=== PATIENT | female | born 1990 | race Caucasian/White ===

== ENCOUNTER 2021-05-20 17:50 | Outpatient (CLI) | payer OTHER ==
[2021-05-20 19:03] VITALS: BP 134/83; PULSE 89; RESP 15; TEMP 97.9
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
== END 2021-05-20 18:35 | disposition home or self-care (01) ==
LOC: FBPOP 17:50
PROVIDERS: ATTEND Obstetrics & Gynecology
DX: O9A.212 Injury, poisoning and certain other consequences of external causes complicating pregnancy, second trimester (principal); O36.8120 Decreased fetal movements, second trimester, not applicable or unspecified; Z3A.25 25 weeks gestation of pregnancy; Z88.1 Allergy status to other antibiotic agents; W19.XXXA Unspecified fall, initial encounter
CPT/HCPCS: 99213

== ENCOUNTER 2021-07-23 16:55 | Outpatient (CLI) | payer OTHER ==
[2021-07-23 17:58] LABS: Basophils % (A) 0 %; Eosinophils # (A) 0.1 k/uL (0-0.7); Eosinophils % (A) 1 %; HCT 32.1 % (34.0-46.0); HGB 10.2 gm/dL (11.4-16.0); Hypochromasia Slight; Lymphocytes % (A) 20 %; MCH 26.6 pg (25.0-35.0); MCHC 31.9 g/dL (31.0-37.0); MCV 83.6 fL (80.0-100.0); Mean Platelet Volume 7.6; Monocytes # (A) 0.4 k/uL (0-1.0); Monocytes % (A) 4 %; Neutrophils # (A) 7.1 k/uL (1.3-7.7); Neutrophils % (A) 72 %; Platelet Count 310 k/uL (150-450); RBC 3.84 m/uL (3.80-5.40); RDW 15.8 % (11.5-15.5); WBC 9.9 k/uL (3.8-10.6)
[2021-07-23 18:17] LABS: ALT 15 U/L (4-34); AST 20 U/L (14-36); African American GFR (CKD) >90 (>60 ml/min/1.73 sqM); Blood Urea Nitrogen 5 mg/dL (7-17); LDH 402 U/L (313-618); Non-African American GFR(CKD) >90 (>60 ml/min/1.73 sqM); Uric Acid 3.6 mg/dL (3.7-7.4)
[2021-07-23 18:41] LABS: Appearance,Urine Cloudy (Clear); Bacteria,Urine Moderate /hpf; Bilirubin,Urine Negative (Negative); Blood,Urine Negative (Negative); Color,Urine Light Yellow; Glucose,Urine (UA) Negative (Negative); Ketones,Urine Negative (Negative); Leukocyte Esterase,Urine Negative (Negative); Mucus,Urine Rare /hpf; Nitrite,Urine Negative (Negative); Protein,Urine Negative (Negative); Specific Gravity,Urine 1.007 (1.001-1.035); Squamous Epithelial Cell,Urine 9 /hpf (0-4); Transitional Epi Cells,Urine <1 /hpf (0-1); Urobilinogen,Urine <2.0 mg/dL (<2.0); WBC,Urine 3 /hpf (0-5)
[2021-07-23 18:53] LABS: Creatinine,Urine Random 44.2 mg/dL; Protein/Creatinine Ratio,Urine 0.339
[2021-07-23 19:24] VITALS: BP 145/65; PULSE 102; RESP 16; TEMP 97.2
--- NOTE | 2021-08-01 08:19 | P.MSEPDOC ---
Presenting Problems - Arrival Data Date of Arrival on Unit: 07/23/21 Time of Arrival on Unit: 16:55 Mode of Transport: Ambulatory - Complaint OB-Reason for Admission/Chief Complaint: PIH Medical History - Information : 2 Para: 1 Term: 1 : 0 Abortions: Spontaneous or Elective: 0 Number of Living Children: 1 - Gestational Age Gestational Age by ELISEO (wks/days): 34 Weeks and 3 Days - History Complications: Prior Review of Systems - Review of Systems Constitutional: No problems Breast: No problems ENT: No problems Cardiovascular: No problems Respiratory: No problems Gastrointestinal: No problems Genitourinary: No problems Musculoskeletal: No problems Neurological: No problems Skin: No problems Vital Signs - Temperature Temperature: 97.2 F Temperature Source: Temporal Artery Scan - Pulse Brachial Pulse Rate: 102 Pulse Assessment Method: Automatic Cuff - Respirations Respiratory Rate: 16 Oxygen Delivery Method: Room Air O2 Sat by Pulse Oximetry: 97 - Blood Pressure Right Arm Sitting Blood Pressure: 145/65 Blood Pressure Mean: 91 Blood Pressure Source: Automatic Cuff Medical Screen Scoring - Cervical Exam Membranes: Intact - Assessment - Baby A Baseline FHR: 145 Heart Rate - NICHD Category: Category I (Normal) Physician Notification - Physician Notified Physician Notified Date: 07/23/21 Physician Notified Time: 19:23 Physician: Loni Gutierrez New Order Received: Yes - Notification Comment Comment: reported labs, bp's and amniure neg. Orders received to have pt start Labetolol tomorrow morning that will sent to her pharmacy. Orders received to have pt f/u with Dr Ellis on Wednesday and continue to monitor bp's at home. Maternal Triage Index - Maternal Triage Index Presenting for scheduled procedure w/no complaint: No - Stat/Priority 1 Stat Priority 1: No - Urgent/Priority 2 Urgent Priority 2: Yes Provider Notified: Loni Gutierrez Provider Notified Time: 17:20 Criteria Met for Priority 2: elevated bp's Disposition - Disposition OB Disposition: Triage, Discharge to home, Written follow up instructions reviewed Discharge Date: 07/23/21 Discharge Time: 19:35 I agree with the RN Medical Screening Exam: Yes Case reviewed; plan agreed upon as documented in EMR&OBIX.: Yes Diagnosis: gestational hypertension
== END 2021-07-23 19:35 | disposition home or self-care (01) ==
LOC: FBPOP 16:55
PROVIDERS: ATTEND Obstetrics & Gynecology
DX: O13.3 Gestational [pregnancy-induced] hypertension without significant proteinuria, third trimester (principal); Z3A.34 34 weeks gestation of pregnancy
CPT/HCPCS: 59025; 82570; 84156; 82565; 83615; 84450; 84460; 84520; 84550; 85025; 81001; G0463; 99215

== ENCOUNTER 2021-08-15 19:40 | Inpatient (IN) | payer OTHER ==
[2021-08-15 21:10] LABS: Appearance,Urine Clear (Clear); Basophils % (A) 0 %; Bilirubin,Urine Negative (Negative); Blood,Urine Negative (Negative); Color,Urine Yellow; Eosinophils # (A) 0.1 k/uL (0-0.7); Eosinophils % (A) 1 %; Glucose,Urine (UA) Negative (Negative); HCT 30.9 % (34.0-46.0); Hypochromasia Moderate; Ketones,Urine Negative (Negative); Leukocyte Esterase,Urine Negative (Negative); Lymphocytes # (A) 2.3 k/uL (1.0-4.8); Lymphocytes % (A) 20 %; MCH 26.3 pg (25.0-35.0); MCHC 32.3 g/dL (31.0-37.0); MCV 81.4 fL (80.0-100.0); Mean Platelet Volume 7.8; Monocytes # (A) 0.5 k/uL (0-1.0); Monocytes % (A) 5 %; Neutrophils # (A) 8.5 k/uL (1.3-7.7); Neutrophils % (A) 73 %; Nitrite,Urine Negative (Negative); Platelet Count 379 k/uL (150-450); Poikilocytosis Slight; Protein,Urine Trace (Negative); RBC 3.79 m/uL (3.80-5.40); RDW 15.4 % (11.5-15.5); Specific Gravity,Urine 1.013 (1.001-1.035); Urobilinogen,Urine <2.0 mg/dL (<2.0); WBC 11.6 k/uL (3.8-10.6)
[2021-08-15 21:15] LABS: Creatinine,Urine Random 101.5 mg/dL; Creatinine,Urine Random 101.7 mg/dL; Protein/Creatinine Ratio,Urine 0.167
[2021-08-15 21:18] LABS: ALT 19 U/L (4-34); AST 23 U/L (14-36); African American GFR (CKD) >90 (>60 ml/min/1.73 sqM); Blood Urea Nitrogen 6 mg/dL (7-17); LDH 391 U/L (313-618); Non-African American GFR(CKD) >90 (>60 ml/min/1.73 sqM); Uric Acid 4.5 mg/dL (3.7-7.4)
[2021-08-15] MEDS ORDERED: LABETALOL 200 MG TAB PO STA (22:26)
[2021-08-15] MEDS: ACETAMINOPHEN TAB 500 MG TAB PO PRN (22:43)
[2021-08-16] MEDS ORDERED: ceFAZolin 3 GM in SODIUM CHLORIDE 0.9% 100 ML IVPB ONE (05:30)
[2021-08-16] MEDS ORDERED: CITRIC ACID-SODIUM CITRATE 15 ML CUP PO ONE (06:00)
[2021-08-16] MEDS ORDERED: LACTATED RINGERS 1,000 ML IV ONE (06:00)
[2021-08-16] MEDS ORDERED: KETOROLAC 15 MG/ML 1 ML VIAL ONE (06:54)
[2021-08-16] MEDS ORDERED: PHENYLEPHRINE-0.9% NACL SYG 1,000 MCG/10 ML SYRINGE ONE (06:54)
[2021-08-16] MEDS ORDERED: MORPHINE SULFATE (PF) 0.3 MG/0.3 ML SYR ONE (06:54)
--- NOTE | 2021-08-16 06:59 | P.HPOB ---
History of Present Illness H&P Date: 08/16/21 Chief Complaint: Data blood pressures at home, headache, right upper quadrant pain, 37-6/7 w This is a 32-year-old female 2 para 1001 EDC 08/31/2021 at 37-6/7 weeks' gestation. Patient has been on labetalol 100 mg twice daily. Yesterday she called with elevated blood pressures at home, 140s to 150s over 70s to 80s. She was admitted, labs were essentially normal, however blood pressures were noted to be elevated. She is scheduled for repeat section and tubal ligation in 1 week. Decision was made to proceed with surgery today. Fetus is been active throughout the . Past medical history is significant for PCO OS. Past surgical history section 2014, cholecystectomy,. Current medications vitamins, labetalol 100 mg twice daily, baby aspirin daily. ALLERGIES amoxicillin to which reports a rash as a child. Family history is significant for hypertension, diabetes, cervical cancer, asthma, cleft palate. Social history patient is a former tobacco smoker, she is , she denies alcohol or drug use. history blood type is A+, rubella status immune. VDRL testing, urine culture, group B strep cultures, hepatitis B surface antigen, HIV testing, gonorrhea Chlamydia cultures all negative. One-hour Glucola 103. On exam patient is 5 foot 9 inches, 314 pounds blood pressure 146/71 this morning. Patient has multiple tattoos across the body. Chest is clear in all christianson. Cervix is long thick and closed. heart rate is consistent with reactive NST. She has 3+ reflexes. 3+ lower extremity edema. Facial edema noted as well. Impression: 37-6/7 weeks intrauterine , -induced hypertension with symptoms of preeclampsia, labs within normal limits. Maternal obesity. Undesired fertility. Previous section, wishing repeat , declined. Plan: For repeat low transverse section. 3 g of Ancef. Anesthesia aware. All risks and benefits reviewed. Review of Systems Constitutional: Reports as per HPI Past Medical History Past Medical History: Asthma Additional Past Medical History / Comment(s): polycystic ovarian syndrome History of Any Multi-Drug Resistant Organisms: None Reported Past Surgical History: Section, Cholecystectomy Additional Past Surgical History / Comment(s): kidney stents places and removed Past Anesthesia/Blood Transfusion Reactions: No Reported Reaction Past Psychological History: No Psychological Hx Reported Smoking Status: Never smoker Past Alcohol Use History: None Reported Past Drug Use History: None Reported Medications and Allergies Home Medications Medication Instructions Recorded Confirmed Type Aspirin [[place] Aspirin EC] 81 mg PO DAILY 07/23/21 08/15/21 History Omeprazole [PriLOSEC] 40 mg PO DAILY 07/23/21 08/15/21 History Pediatric Multivitamin No.144 2 tab PO DAILY 07/23/21 08/15/21 History [Children's Chewable Vitamin] Labetalol [Trandate] 100 mg PO BID 08/15/21 08/15/21 History Allergies Allergy/AdvReac Type Severity Reaction Status Date / Time amoxicillin Allergy Rash/Hives Verified 08/15/21 20:07 Exam Vital Signs Temp Pulse Resp BP Pulse Ox 08/15/21 22:20 98.1 F 90 16 142/75 97 08/15/21 20:29 97.7 F 91 16 138/65 98 Intake and Output 08/15/21 08/15/21 08/16/21 14:59 22:59 06:59 Other: # Voids 2 Weight 142.428 kg See dictation under HPI please Results Result Diagrams: 08/15/21 21:00 08/15/21 21:00 Abnormal Lab Results - Last 24 Hours (Table) 08/15/21 08/15/21 08/15/21 Range/Units 21:00 21:00 21:00 WBC 11.6 H (3.8-10.6) k/uL RBC 3.79 L (3.80-5.40) m/uL Hgb 10.0 L (11.4-16.0) gm/dL Hct 30.9 L (34.0-46.0) % Neutrophils # 8.5 H (1.3-7.7) k/uL BUN (7-17) mg/dL Urine Protein Trace H (Negative) U Random Total Protein 18 H (<12) mg/dL 08/15/21 Range/Units 21:00 WBC (3.8-10.6) k/uL RBC (3.80-5.40) m/uL Hgb (11.4-16.0) gm/dL Hct (34.0-46.0) % Neutrophils # (1.3-7.7) k/uL BUN 6 L (7-17) mg/dL Urine Protein (Negative) U Random Total Protein (<12) mg/dL Assessment and Plan Assessment: 37-6/7 weeks intrauterine , -induced hypertension with signs and symptoms of preeclampsia, maternal obesity, undesired fertility, previous section declining Plan: For repeat low transverse section this morning. Anesthesia aware. Antibiotics given. All questions answered. Tubal ligation per patient request. Time with Patient: Less than 30
[2021-08-16] MEDS ORDERED: ONDANSETRON 4 MG/2 ML VIAL IVP PRN (08:11)
[2021-08-16] MEDS ORDERED: METOCLOPRAMIDE 5 MG/ML 2 ML VIAL IVP PRN (08:11)
[2021-08-16] MEDS ORDERED: ZOLPIDEM 5 MG TAB PO PRN (08:11)
[2021-08-16] MEDS ORDERED: NALOXONE 0.4 MG/ML 1 ML VIAL IV PRN (08:11)
[2021-08-16] MEDS ORDERED: SIMETHICONE 80 MG CHEWABLE PO PRN (08:11)
[2021-08-16] MEDS ORDERED: diphenhydrAMINE 50 MG/ML 1 ML VIAL IVP PRN ×2 (08:11)
[2021-08-16] MEDS ORDERED: diphenhydrAMINE 25 MG CAP PO PRN (08:11)
[2021-08-16] MEDS ORDERED: diphenhydrAMINE 50 MG CAP PO PRN (08:11)
--- NOTE | 2021-08-16 08:11 | P.OP ---
Date of Procedure: 08/16/21 Preoperative Diagnosis: 37-6/7 weeks intrauterine , -induced hypertension with signs and symptoms of preeclampsia, maternal obesity, undesired fertility, previous section declining Postoperative Diagnosis: Same, liveborn female . Normal-appearing tubes and ovaries bilaterally Procedure(s) Performed: Repeat low transverse section and tubal ligation Anesthesia: spinal Surgeon: Shantell Ellis Government Affairs Director #1: Kandace Denson Estimated Blood Loss (ml): 307 IV fluids (ml): 800 Urine output (ml): 300 Pathology: other (Placenta) Condition: stable Disposition: PACU Operative Findings: Liveborn female infant, scores 9 and 9 at one and 5 minutes respectively. 6 lbs. 9 oz., 2980 g. Description of Procedure: Patient is brought to the [facility] and suite where a spinal analgesia with Duramorph is administered without difficulty. She's placed in the dorsal supine position with left lateral uterine displacement. 3 g of Ancef are given. The appropriate timeout is performed to assure proper patient and procedural identification. Terrell catheter to direct drainage. The abdomen is prepped and draped in the usual sterile fashion. The analgesia is checked and noted to be adequate. A repeat low transverse skin incision is made after elevating the anterior abdominal wall with Velcro straps. The incision is taken down through the subcutaneous tissue which is approximately 10 cm deep. The fascia is isolated, scored, extended bilaterally with curved Wilkes scissors. Peritoneum is next identified and incised, there is no bowel or bladder involvement. The large disposable ring retractor is placed for excellent visualization. Bladder is well from the operative field, low and behind the retractor. A low transverse uterine incision is made. Artificial amniorrhexis reveals abundant clear fluid. 's head is delivered in the occiput anterior position. There is no nuchal cord. Patient is officially delivered of a liveborn female at 0718 hours. Umbilical cord is doubly clamped and ligated, she is handed to waiting nurses for evaluation where scores of 9 and 9 at one and 5 minutes respectively are given. The placenta is delivered manually, it is inspected and noted to be intact with trivascular cord. It is sent to pathology for evaluation for -induced hypertension with signs and symptoms of preeclampsia. Uterus is externalized and massaged. It is wiped clean with a sterile sponge to avoid any retained products of conception. The uterus is closed in a full thickness single layer stitch of 0 Vicryl with excellent reapproximation. Bilateral tubes and ovaries appear normal to inspection. The abdomen was suctioned with suction on guard posterior to the uterus. Filshie clips are then placed in the isthmic portion of bilateral tubes, with care to traverse the entire diameter of the tubes into the mesal salpinx. Fimbriated ends are identified. The uterus is then gently placed back into the abdominal cavity. The ring retractor is removed. Bilateral gutters are inspected and cleaned. Peritoneum was allowed to close by secondary intention. Fascia is closed in a running stitch of 0 Vicryl with over ligation in the midline. Subcutaneous tissue is deep, inspected thoroughly, clean and dry. It is reapproximated with 3-0 Vicryl in a running stitch. 4-0 undyed Monocryl is used for final skin closure. Steri-Strips and Mastisol are applied to the wound. The wound is dressed. The uterus is massaged for a small amount of blood. Terrell is noted to be draining clear urine. All sponge needle and enhancement counts are correct. Patient is brought back to recovery room in good condition with a blood pressure 138/67, pulse 88. weighs 6 lbs. 9 oz. or 2980 g.
[2021-08-16] MEDS: LACTATED RINGERS 1,000 ML IV SCH ×2 (08:25→12:50)
[2021-08-16] MEDS: KETOROLAC 15 MG/ML 1 ML VIAL IVP SCH ×2 (15:39→21:07)
[2021-08-16] MEDS: IBUPROFEN 600 MG TAB PO SCH ×2 (15:40→21:08)
[2021-08-16] MEDS: SENNOSIDES-DOCUSATE SODIUM 1 EACH TAB PO SCH (19:48)
[2021-08-17] MEDS: KETOROLAC 15 MG/ML 1 ML VIAL IVP SCH (03:34)
[2021-08-17] MEDS: LACTATED RINGERS 1,000 ML IV SCH (03:35)
[2021-08-17] MEDS: IBUPROFEN 600 MG TAB PO SCH ×4 (03:35→22:04)
--- NOTE | 2021-08-17 07:26 | P.PN ---
Progress Note - Text Progress Note Date: 08/17/21 Patient doing well. Ambulating w/o complaints of weakness or paresthesias. Denies headache or pruritis. Pain controlled. Back spinal site clean and dry. POD#1 s/p duramorph spinal for - continue current treatment plan
[2021-08-17 07:27] LABS: Basophils % (A) 0 %; Eosinophils # (A) 0.1 k/uL (0-0.7); Eosinophils % (A) 1 %; HCT 28.9 % (34.0-46.0); HGB 9.1 gm/dL (11.4-16.0); Hypochromasia Moderate; Lymphocytes # (A) 1.4 k/uL (1.0-4.8); Lymphocytes % (A) 10 %; MCH 25.7 pg (25.0-35.0); MCHC 31.3 g/dL (31.0-37.0); MCV 82.1 fL (80.0-100.0); Mean Platelet Volume 7.6; Monocytes # (A) 0.5 k/uL (0-1.0); Monocytes % (A) 4 %; Neutrophils # (A) 11.7 k/uL (1.3-7.7); Neutrophils % (A) 85 %; Platelet Count 344 k/uL (150-450); Poikilocytosis Slight; RBC 3.52 m/uL (3.80-5.40); RDW 15.6 % (11.5-15.5); WBC 13.8 k/uL (3.8-10.6)
--- NOTE | 2021-08-17 07:49 | P.PN ---
Subjective Progress Note Date: 08/17/21 Principal diagnosis: Doing well postoperative day #1 No headache, visual changes or right upper quadrant pain, resolved. No pain. Positive flatus. No complaints Objective - Vital Signs Vital signs: Vital Signs Temp 98.9 F 08/17/21 03:53 Pulse 99 08/17/21 03:53 Resp 16 08/17/21 03:53 BP 129/74 08/17/21 03:53 Pulse Ox 96 08/17/21 03:53 FiO2 Intake & Output 08/16/21 08/17/21 08/17/21 18:59 06:59 18:59 Output Total 1027 300 Balance -1027 -300 Output: Urine 350 300 Uretheral (Terrell) 100 Output, Quantitative 677 Blood Loss Other: # Voids 1 # Emeses 1 - Constitutional General appearance: Present: cooperative, morbidly obese - EENT Eyes: Present: PERRLA ENT: Present: hearing grossly normal - Neck Thyroid: bilateral: normal size - Respiratory Respiratory: bilateral: CTA - Cardiovascular Rhythm: regular - Gastrointestinal Gastrointestinal Comment(s): Incision clean and dry, intact, Steri-Strips applied. Fundus firm, midline, symmetric, 18 week size. - Integumentary Integumentary: Present: normal - Neurologic Neurologic: Present: CNII-XII intact - Musculoskeletal Musculoskeletal: Present: gait normal, strength equal bilaterally - Labs CBC & Chem 7: 08/17/21 06:56 08/15/21 21:00 Labs: Abnormal Lab Results - Last 24 Hours (Table) 08/17/21 Range/Units 06:56 WBC 13.8 H (3.8-10.6) k/uL RBC 3.52 L (3.80-5.40) m/uL Hgb 9.1 L (11.4-16.0) gm/dL Hct 28.9 L (34.0-46.0) % RDW 15.6 H (11.5-15.5) % Neutrophils # 11.7 H (1.3-7.7) k/uL Assessment and Plan Assessment: Doing well first postoperative day. Blood pressures have normalized. No complaints Plan: Ferrous sulfate twice daily. Continue postoperative care. Likely discharge home tomorrow. Time with Patient: Less than 30
[2021-08-17] MEDS: SENNOSIDES-DOCUSATE SODIUM 1 EACH TAB PO SCH ×2 (08:01→22:05)
[2021-08-17] MEDS: ACETAMINOPHEN TAB 500 MG TAB PO PRN ×2 (14:18→19:22)
[2021-08-17] MEDS: FERROUS SULFATE 325 MG TAB PO SCH (17:55)
[2021-08-18] MEDS: ACETAMINOPHEN TAB 500 MG TAB PO PRN (02:44)
[2021-08-18] MEDS: IBUPROFEN 600 MG TAB PO SCH (06:18)
[2021-08-18 08:02] VITALS: BP 138/83; PULSE 91; RESP 18; TEMP 98
--- NOTE | 2021-08-18 08:02 | P.DS ---
Providers Date of admission: 08/15/21 21:36 Expected date of discharge: 08/18/21 Attending physician: Shantell Ellis Primary care physician: Stated None Hospital Course: This is a 31-year-old female 2 para 1001 EDC 08/31/2021 at 37-6/7 weeks' gestation. Patient presented with headache, visual changes, right upper quadrant pain. She has been on labetalol twice daily at home. Blood pressures 150s over 80s, labs within normal limits. However with patient's increased symptomatology, 2+ edema, decision was made to proceed with her repeat low transverse section and tubal ligation. This was previously scheduled for 08/25/2021. Please see my dictated history and physical for details. Patient underwent a repeat low transverse section and tubal ligation, giving to a liveborn female with scores of 9 and 9 at one and 5 minutes respectively. Infant weighed 6 lbs. 9 oz. or 2980 g. She did well intraoperatively, estimated blood loss 307 mL's. Please see my dictated operative note for details. Swelling the patient is doing well. She is off the labetalol, blood pressure 1:30 over 80s. Incision is clean and dry, intact, Steri-Strips applied. Fundus is firm, midline, symmetric, 18 week size. Breast-feeding is going well. Breast pump prescription has been provided. Patient is doing well with ibuprofen for pain medications. infant has been cleared for discharge home per senior bi developer. Patient is completely asymptomatic this morning. She will follow-up with me in the office in 2 weeks. She has a blood pressure cuff at home and will take her pressures, especially if any headache, visual changes or right upper quadrant pain should recur. She will use [id number] Advil or Aleve, or Motrin as needed for pain. She will call with any fevers shakes or chills, foul smelling or copious lochia, with passage of large blood clots, systolic blood pressure 150 or higher, diastolic blood pressure 90 or higher, with any headache, visual changes, right upper quadrant pain, or indeed with any questions difficulties or concerns. Assessment: Doing well second postoperative day Patient Condition at Discharge: Good Plan - Discharge Summary Discharge Rx Participant: No New Discharge Prescriptions: No Action Pediatric Multivitamin No.144 [Children's Chewable Vitamin] 2 tab PO DAILY Omeprazole [PriLOSEC] 40 mg PO DAILY Labetalol [Trandate] 100 mg PO BID Aspirin [[place] Aspirin EC] 81 mg PO DAILY Discharge Medication List Aspirin [[place] Aspirin EC] 81 mg PO DAILY 07/23/21 [History] Omeprazole [PriLOSEC] 40 mg PO DAILY 07/23/21 [History] Pediatric Multivitamin No.144 [Children's Chewable Vitamin] 2 tab PO DAILY 07/23/21 [History] Labetalol [Trandate] 100 mg PO BID 08/15/21 [History] Follow up Appointment(s)/Referral(s): Shantell Ellis MD [STAFF PHYSICIAN] - 2 Weeks Discharge Disposition: HOME SELF-CARE
--- NOTE | 2021-08-18 08:05 | P.MSEPDOC ---
Presenting Problems - Arrival Data Date of Arrival on Unit: 08/15/21 Time of Arrival on Unit: 21:36 Mode of Transport: Ambulatory - Complaint OB-Reason for Admission/Chief Complaint: PIH Comment: s/s of pih Medical History - Information : 2 Para: 1 Term: 1 : 0 Abortions: Spontaneous or Elective: 0 Number of Living Children: 1 - Gestational Age Gestational Age by ELISEO (wks/days): 37 Weeks and 6 Days - History Complications: No Care Review of Systems - Review of Systems Constitutional: No problems Breast: No problems ENT: No problems Cardiovascular: No problems Respiratory: No problems Gastrointestinal: No problems Genitourinary: No problems Musculoskeletal: No problems Neurological: No problems Skin: No problems Vital Signs - Temperature Temperature: 98.0 F Temperature Source: Oral - Pulse Pulse Oximetery Pulse Rate: 91 Pulse Assessment Method: Pulse Oximetry - Respirations Respiratory Rate: 18 Oxygen Delivery Method: Room Air O2 Sat by Pulse Oximetry: 98 - Blood Pressure Right Arm Blood Pressure: 138/83 Blood Pressure Mean: 101 Blood Pressure Source: Automatic Cuff Medical Screen Scoring - Assessment - Baby A Baseline FHR: 130 Heart Rate - NICHD Category: Category I (Normal) NST: Reactive Physician Notification - Physician Notified Physician Notified Date: 08/15/21 Physician Notified Time: 20:29 Physician: Shantell Ellis New Order Received: Yes - Notification Comment Comment: Dr. Ellis calling unit for update on patient. Report given on maternal and. status, NST reactive, BPs currently 138/65, 153/73, 146/71. Pt complains of. increased edema (3+ bilat tibial), seeing spots/flashes of light, STREETER, nausea, and. occassional RUQ pain. Reflexes are 2+ and no clonus. Orders for [facility] labs (AST, ALT, uric. acid, CBC, and UA). Call with results. 2129 - Dr. Ellis called and updated on patient status. Labs essentially WNL, BPs. ranging 130/70-150/80, symptoms remain the same except pt is having more consistent RUQ. pain. Orders to OBV pt overnight and plan for RCS w/ TL in the morning. NPO after. midnight, no continuous monitoring, and given 1,000mg of PO tylenol now and if. needed in 6hrs. Maternal Triage Index - Maternal Triage Index Presenting for scheduled procedure w/no complaint: No - Stat/Priority 1 Stat Priority 1: No - Urgent/Priority 2 Urgent Priority 2: Yes Provider Notified: Shantell Ellis Provider Notified Time: 20:29 Criteria Met for Priority 2: 37 5/7 weeks, BPs 138/65, 153/73, 146/71, increased edema (3+), seeing spots/flashes of light, STREETER, nausea, RUQ pain Disposition - Disposition OB Disposition: Admit, LDRP Suite I agree with the RN Medical Screening Exam: Yes Case reviewed; plan agreed upon as documented in EMR&OBIX.: Yes Diagnosis: RELATED CONDITIONS, UNSPECIFIED, THIRD TRIMESTER
[2021-08-18] MEDS: FERROUS SULFATE 325 MG TAB PO SCH (09:18)
[2021-08-18] MEDS: SENNOSIDES-DOCUSATE SODIUM 1 EACH TAB PO SCH (09:20)
== END 2021-08-18 10:47 | disposition home or self-care (01) | DRG 785 ==
LOC: FBPOP 19:40 → 4FBP 21:36
PROVIDERS: ADMIT Obstetrics & Gynecology; ATTEND Obstetrics & Gynecology
DX: O13.4 Gestational [pregnancy-induced] hypertension without significant proteinuria, complicating childbirth (principal); O34.211 Maternal care for low transverse scar from previous cesarean delivery; J45.909 Unspecified asthma, uncomplicated; O99.214 Obesity complicating childbirth; O99.52 Diseases of the respiratory system complicating childbirth; Z30.2 Encounter for sterilization; Z37.0 Single live birth; Z3A.37 37 weeks gestation of pregnancy; Z79.82 Long term (current) use of aspirin; Z80.49 Family history of malignant neoplasm of other genital organs; Z82.49 Family history of ischemic heart disease and other diseases of the circulatory system; Z82.5 Family history of asthma and other chronic lower respiratory diseases; Z83.3 Family history of diabetes mellitus; Z87.891 Personal history of nicotine dependence; Z88.0 Allergy status to penicillin; Z90.49 Acquired absence of other specified parts of digestive tract; Z98.890 Other specified postprocedural states
CPT/HCPCS: 59025; 81003; 82565; 82570; 83615; 84156; 84450; 84460; 84520; 84550; 85025; 86850; 86900; 86901; 99215

== ENCOUNTER → 2023-03-04 | Outpatient (CLI) | payer OTHER ==
[2023-03-04 13:53] VITALS: BP 138/74; PULSE 105; RESP 16; TEMP 97.9; BMI 46.6
--- NOTE | 2023-03-04 15:26 | P.HPBAR ---
Bariatric H&P - History & Physicial H&P Date: 03/04/23 History & Physicial: Visit/CC: New Pt Patient initial contact: Initial weight: 143.335 kg Initial weight in pounds: 316.00 Height: 5 ft 9 in Initial BMI: 46.6 Last weight: Current weight: 143.335 kg Current weight in pounds: 316.00 Current BMI: 46.6 [place] body weight (based on NIH guidelines): 65.771 kg Excess body weight loss: 0.0% The patient is a 33 year-old F who presents for Bariatric Assessment. 33-year-old female here to discuss bariatric surgery options. She is interested in sleeve gastrectomy. She suffers from PCL less and mild GERD symptoms. BMI 46. I asked weight previously 325. Abdominal surgeries include , laparoscopic cholecystectomy. She quit smoking 3 years ago. No history of DVT or dysphagia. No prior EGD. Patient has tried GLP-1 agonist without success secondary to multiple side effects. Review of Systems The patient denies any acute changes in vision or hearing, no dysphagia or odynophagia, no chest pain or shortness of breath, no dysuria or hematuria, no headache, no runny nose, no rectal bleeding or melena, no unexplained weight loss Past Medical History Past Medical History: Asthma Additional Past Medical History / Comment(s): polycystic ovarian syndrome History of Any Multi-Drug Resistant Organisms: None Reported Past Surgical History: Section, Cholecystectomy Additional Past Surgical History / Comment(s): kidney stents places and removed Past Anesthesia/Blood Transfusion Reactions: No Reported Reaction Past Psychological History: No Psychological Hx Reported Smoking Status: Never smoker Past Alcohol Use History: None Reported Past Drug Use History: None Reported Surgical - Exam Vital Signs Temp Pulse Resp BP 97.9 F 105 H 16 138/74 03/04/23 13:47 03/04/23 13:47 03/04/23 13:47 03/04/23 13:47 Physical exam: General: Well-developed, well-nourished HEENT: Normocephalic, sclerae nonicteric Abdomen: Nontender, nondistended Extremities: No edema Neuro: Alert and oriented Bariatric Assessment & Plan (1) Morbid obesity with BMI of 45.0-49.9, adult Narrative/Plan: 3-year-old female with history of morbid obesity and comorbidities. Patient interested in sleeve gastrectomy. We discussed the risks, benefits, and average weight loss with various bariatric surgeries. She remains interested in sleeve gastrectomy at this time. We'll plan preoperative EGD. The risks of bleeding, infection, stenosis, stricture, leak, abscess, fistula formation, peritonitis, poor weight loss, reflux, vomiting, conversion to an open procedure, aborting sleeve gastrectomy, [place], PE, DVT, and were discussed. The patient understands and wishes to proceed. Status: Acute Bariatric Checklist Checklist: Plan: Checklist: EGD: 1. Hiatal hernia: 2. H. Pylori: HgbA1c: Vitamin D: Smoking: Light tobacco smoker Primary care physician referral: [facility] Psychiatry clearance: Cardiology clearance: Sleep study: Diet journal: VTE risk score: VTE risk level: Rehab needs at discharge:
[2023-03-05 02:14] LABS: HCT 39.4 % (37.2-46.3); HGB 11.8 g/dL (12.0-15.0); MCH 24.8 pg (27.0-32.0); MCHC 29.9 g/dL (32.0-37.0); MCV 82.8 FL (80.0-97.0); Mean Platelet Volume 9.7 FL (9.5-12.2); NRBC Per 100 WBC 0 X 10*3/uL (0.00-0.01); Platelet Count 369 X 10*3/uL (140-440); RBC 4.76 X 10*6/uL (4.10-5.20); RDW 15.4 % (11.5-14.5); WBC 11.81 X 10*3/uL (4.50-10.00)
[2023-03-05 04:00] LABS: ALT 21 U/L (8-44); AST 19 U/L (13-35); Albumin 4.3 g/dL (3.8-4.9); Albumin/Globulin Ratio 1.26 Ratio (1.60-3.17); Alkaline Phosphatase 86 U/L (41-126); BUN/Creat Ratio 14.75 Ratio (12.00-20.00); Blood Urea Nitrogen 11.8 mg/dL (9.0-27.0); Calcium 10.5 mg/dL (8.7-10.3); Carbon Dioxide 25.2 mmol/L (21.6-31.8); Chloride 103 mmol/L (96-109); Globulin 3.4 g/dL (1.6-3.3); Glucose 76 mg/dL (70-110); Iron 31 UG/DL (50-170); Potassium 4.5 mmol/L (3.5-5.5); Sodium 139 mmol/L (135-145); Total Bilirubin <0.2 mg/dL (0.3-1.2); Total Protein 7.7 g/dL (6.2-8.2)
== END ==
LOC: BARWHC3 13:36
PROVIDERS: ATTEND Surgery
DX: K21.9 Gastro-esophageal reflux disease without esophagitis (principal); E66.01 Morbid (severe) obesity due to excess calories; K90.89 Other intestinal malabsorption; E55.9 Vitamin D deficiency, unspecified; J45.909 Unspecified asthma, uncomplicated; Z68.42 Body mass index [BMI] 45.0-49.9, adult; Z87.42 Personal history of other diseases of the female genital tract; Z87.891 Personal history of nicotine dependence; Z88.0 Allergy status to penicillin
CPT/HCPCS: 84425; 80053; 82607; 82746; 83540; 85027; 82306; 83036; 93005; G0480; G0463; 80323; 99202